=== PATIENT | male | born 1965 | race African-American/Black ===

== ENCOUNTER 2017-09-29 07:35 | Inpatient (IN) | payer OTHER ==
[~2017-09-29] VITALS: Ht 167.6 cm; Wt 92.6 kg
[2017-09-29 07:40] VITALS: BP 119/72; TEMP 99
[2017-09-29 09:36] LABS: PLATELET COUNT 225 K/uL (142-355)
[2017-09-29 09:43] LABS: POTASSIUM 3.5 mmol/L (3.6-5.2)
[2017-09-29 16:57] VITALS: BP 109/60; TEMP 97.9; Ht 167.6 cm; Wt 92.6 kg
[2017-09-29 18:17] VITALS: BP 109/62; TEMP 97.9
[2017-09-29 20:00] VITALS: BP 103/48; TEMP 98.2
[2017-09-30] VITALS: BP 100/54; TEMP 98
[2017-09-30 04:00] VITALS: BP 99/53; TEMP 98.4
[2017-09-30 06:37] LABS: PLATELET COUNT 239 K/uL (142-355)
[2017-09-30 06:46] LABS: POTASSIUM 3.5 mmol/L (3.6-5.2)
[2017-09-30 08:00] VITALS: BP 92/54; TEMP 98.3
[2017-09-30 12:00] VITALS: BP 101/52; TEMP 97.8
[2017-09-30 16:00] VITALS: BP 103/60; TEMP 98.3
[2017-09-30 20:00] VITALS: BP 105/60; TEMP 98.2
[2017-10-01] VITALS: BP 121/57; TEMP 98.6
[2017-10-01 04:00] VITALS: BP 115/61; TEMP 97.5
[2017-10-01 06:30] LABS: PLATELET COUNT 219 K/uL (142-355)
[2017-10-01 06:53] LABS: POTASSIUM 3.2 mmol/L (3.6-5.2)
[2017-10-01 08:00] VITALS: BP 118/54; TEMP 98.8
[2017-10-01 12:00] VITALS: BP 109/64; TEMP 97.8
== END 2017-10-01 16:00 | disposition home or self-care (01) | DRG 195 ==
LOC: ED 07:35 → MED/SURG 14:20
DX: J12.9 Viral pneumonia, unspecified (principal); E87.6 Hypokalemia; R05 Cough; K76.0 Fatty (change of) liver, not elsewhere classified
CPT/HCPCS: 36415; 80048; 80053; 85027; 87040; 87804; 94640; 94664; 94760; 96365; 96375; 99284; J0456; J0696; J2930; J3370; Q9963